=== PATIENT | female | born 1970 | race Caucasian/White ===

== ENCOUNTER 2020-03-08 18:07 | Emergency (ER) | payer MEDICARE, MEDICAID ==
[~2020-03-08] VITALS: Ht 167.6 cm; Wt 82.5 kg
[2020-03-08 18:52] LABS: CLARITY,URINE CLOUDY (Clear); COLOR,URINE YELLOW (Yellow); GLUCOSE, URINE NEGATIVE (Neg); KETONES,URINE NEGATIVE (Neg); LEUKOCYTE ESTERASE ,URINE MODERATE (Neg); OCCULT BLOOD,URINE LARGE (Neg); PH,URINE 6.5 (4.8-8.0); PROTEIN,URINE >=300 mg/dl (Neg)
[2020-03-08] MEDS ORDERED: ondansetron 4mg rapidly disintigrating tab PO ONE ×3 (18:55→20:00)
[2020-03-08] MEDS ORDERED: ketorolac trometh. 30mg/ml inj. IM ONE (18:55)
[2020-03-08 19:05] LABS: UA COLLECTION TYPE CLN CATCH MIDSTREAM
[2020-03-08 19:06] LABS: NITRITES, URINE NEGATIVE (Neg)
[2020-03-08 19:07] LABS: BACTERIA,URINE FEW /HPF (Neg); RBC,URINE TNTC /HPF (0-2); SQUAMOUS EPITHELIAL CELL,UR FEW /LPF (FEW)
[2020-03-08] MEDS ORDERED: cephalexin 250mg capsule PO ONE ×2 (20:00)
[2020-03-08] MEDS ORDERED: ONDA4TAB12 PO (20:02)
[2020-03-08] MEDS ORDERED: CEPH500C5 PO (20:02)
[2020-03-08 20:10] VITALS: BP 138/87
== END 2020-03-08 20:11 | disposition home or self-care (01) ==
LOC: ER 18:07
DX: N39.0 Urinary tract infection, site not specified (principal); J44.9 Chronic obstructive pulmonary disease, unspecified; E05.90 Thyrotoxicosis, unspecified without thyrotoxic crisis or storm; Z88.0 Allergy status to penicillin; Z88.2 Allergy status to sulfonamides
CPT/HCPCS: 81001; 87077; 87088; 87186; 96372; 99284; J1885

== ENCOUNTER 2020-03-21 17:44 | Emergency (ER) | payer BC, MEDICAID ==
[~2020-03-21] VITALS: Ht 165.1 cm; Wt 82.8 kg
[~2020-03-21 17:44] MED LIST: CEPH500C5 PO; ONDA4TAB12 PO
[2020-03-21 19:32] LABS: BASOPHILS # (AUTO) 0.1 X10'3 (0-0.2); EOSINOPHILS # (AUTO) 0.1 X10'3 (0-0.9); EOSINOPHILS % (AUTO) 0.8 % (0-6); HEMATOCRIT 40.8 % (35.0-45.0); HEMOGLOBIN 13.6 g/dl (12.0-16.0); LYMPHOCYTES # (AUTO) 1.5 X10'3 (1.1-4.8); LYMPHOCYTES % (AUTO) 11.5 % (21-51); MEAN CORPUSCULAR HEMOGLOBIN 29.8 PG (27.0-31.0); MEAN CORPUSCULAR HGB CONC 33.3 g/dL (33.0-36.5); MEAN CORPUSCULAR VOLUME 89.6 FL (78-98); MONOCYTES % (AUTO) 7.9 % (2-12); NEUTROPHILS # (AUTO) 10.3 X10'3 (1.8-7.7); NEUTROPHILS % (AUTO) 78.8 % (42-75); PLATELET COUNT 262 X10'3 (140-440); RED BLOOD COUNT 4.56 X10'6 (4.20-5.60); RED CELL DISTRIBUTION WIDTH 13.6 % (11.5-14.5)
[2020-03-21 19:33] LABS: URINE HCG NEGATIVE (NEG)
[2020-03-21 19:34] LABS: CLARITY,URINE CLOUDY (Clear); COLOR,URINE YELLOW (Yellow); GLUCOSE, URINE NEGATIVE (Neg); KETONES,URINE NEGATIVE (Neg); LEUKOCYTE ESTERASE ,URINE MODERATE (Neg); OCCULT BLOOD,URINE MODERATE (Neg); PROTEIN,URINE 100 mg/dl (Neg); UROBILINOGEN,URINE 0.2 E.U/dL (0.2-1.0)
[2020-03-21] MEDS ORDERED: ketorolac trometh inj. 60 MG/2 ML VIAL IM ONE (19:35)
[2020-03-21 19:39] LABS: NITRITES, URINE NEGATIVE (Neg); UA COLLECTION TYPE CLN CATCH MIDSTREAM
[2020-03-21 19:40] LABS: BACTERIA,URINE FEW /HPF (Neg); SQUAMOUS EPITHELIAL CELL,UR FEW /LPF (FEW); WBC,URINE 30-50 /HPF (0-4)
[2020-03-21 19:44] LABS: ALANINE AMINOTRANSFERASE 24 U/L (12-78); ALBUMIN 3.6 G/DL (3.4-5.0); ALBUMIN/GLOBULIN RATIO 0.7 (1.1-1.5); ALKALINE PHOSPHATASE 105 IU/L (46-116); ANION GAP 7 (8-16); ASPARTATE AMINO TRANSFERASE 23 U/L (10-37); BILIRUBIN,TOTAL 0.6 MG/DL (0.1-1.0); BLOOD UREA NITROGEN 13 MG/DL (7-18); BUN/CREATININE RATIO 13.5 (6.6-38.0); CALCIUM 8.8 MG/DL (8.5-10.1); CHLORIDE 101 MMOL/L (99-107); CREATININE 0.96 MG/DL (0.40-0.90); GLUCOSE 101 MG/DL (70-104); LIPASE 98 U/L (73-393); POTASSIUM 3.7 MMOL/L (3.5-5.1); SODIUM 137 MMOL/L (135-145); TOTAL CARBON DIOXIDE 28.8 MMOL/L (24-32); TOTAL PROTEIN 8.8 G/DL (6.4-8.2); eGFR 61 ML/MIN
[2020-03-21] MEDS ORDERED: CefTRIAXone 1000mg IM Kit (w/lidocaine diluent) IM ONE (19:55)
[2020-03-21] MEDS ORDERED: LEVO750T21 PO (20:52)
[2020-03-21 21:01] VITALS: BP 134/82
== END 2020-03-21 21:03 | disposition home or self-care (01) ==
LOC: ER 17:45
DX: N10 Acute pyelonephritis (principal); J44.9 Chronic obstructive pulmonary disease, unspecified; F17.200 Nicotine dependence, unspecified, uncomplicated; F15.90 Other stimulant use, unspecified, uncomplicated; E05.90 Thyrotoxicosis, unspecified without thyrotoxic crisis or storm; Z88.0 Allergy status to penicillin; Z88.2 Allergy status to sulfonamides
CPT/HCPCS: 36415; 74176; 80053; 81001; 81025; 83690; 85025; 87088; 96372; 99284; J0696; J1885

== ENCOUNTER 2020-05-29 13:47 | Emergency (ER) | payer BC, MEDICAID ==
[~2020-05-29] VITALS: Ht 167.6 cm; Wt 82.0 kg
[2020-05-29 14:22] LABS: BASOPHILS # (AUTO) 0.1 X10'3 (0-0.2); BASOPHILS % (AUTO) 0.8 % (0-1); EOSINOPHILS # (AUTO) 0.1 X10'3 (0-0.9); EOSINOPHILS % (AUTO) 0.9 % (0-6); HEMATOCRIT 39.2 % (35.0-45.0); HEMOGLOBIN 13.1 g/dl (12.0-16.0); LYMPHOCYTES # (AUTO) 1.8 X10'3 (1.1-4.8); LYMPHOCYTES % (AUTO) 17.6 % (21-51); MEAN CORPUSCULAR HEMOGLOBIN 29.7 PG (27.0-31.0); MEAN CORPUSCULAR HGB CONC 33.5 g/dL (33.0-36.5); MEAN CORPUSCULAR VOLUME 88.7 FL (78-98); MONOCYTES # (AUTO) 0.8 X10'3 (0-0.9); MONOCYTES % (AUTO) 7.5 % (2-12); NEUTROPHILS # (AUTO) 7.5 X10'3 (1.8-7.7); NEUTROPHILS % (AUTO) 73.2 % (42-75); PLATELET COUNT 279 X10'3 (140-440); RED BLOOD COUNT 4.42 X10'6 (4.20-5.60); WHITE BLOOD COUNT 10.3 X10'3 (4.5-11.0)
[2020-05-29 14:36] LABS: ALANINE AMINOTRANSFERASE 30 U/L (12-78); ALBUMIN 3.7 G/DL (3.4-5.0); ALBUMIN/GLOBULIN RATIO 0.8 (1.1-1.5); ALKALINE PHOSPHATASE 85 IU/L (46-116); ANION GAP 10 (8-16); ASPARTATE AMINO TRANSFERASE 23 U/L (10-37); BILIRUBIN,TOTAL 0.4 MG/DL (0.1-1.0); BLOOD UREA NITROGEN 13 MG/DL (7-18); BUN/CREATININE RATIO 13.3 (6.6-38.0); CALCIUM 9.2 MG/DL (8.5-10.1); CHLORIDE 103 MMOL/L (99-107); CREATININE 0.98 MG/DL (0.40-0.90); GLUCOSE 135 MG/DL (70-104); POTASSIUM 3.7 MMOL/L (3.5-5.1); SODIUM 139 MMOL/L (135-145); TOTAL CARBON DIOXIDE 26.3 MMOL/L (24-32); TOTAL PROTEIN 8.5 G/DL (6.4-8.2); eGFR 60 ML/MIN
[2020-05-29 15:36] VITALS: BP 136/87
== END 2020-05-29 15:37 | disposition home or self-care (01) ==
LOC: ER 13:48
DX: F41.9 Anxiety disorder, unspecified (principal); J44.9 Chronic obstructive pulmonary disease, unspecified; F17.200 Nicotine dependence, unspecified, uncomplicated; Z88.0 Allergy status to penicillin; Z88.2 Allergy status to sulfonamides; Z79.899 Other long term (current) drug therapy
CPT/HCPCS: 36415; 71045; 80053; 83880; 84484; 85025; 93005; 99285

== ENCOUNTER 2020-06-02 00:49 | Emergency (ER) | payer BC, MEDICAID ==
[~2020-06-02] VITALS: Ht 167.6 cm; Wt 68.2 kg
[2020-06-02 00:52] VITALS: BP 13/93
[2020-06-02] MEDS ORDERED: DOXY100C43 PO (01:20)
[2020-06-02] MEDS ORDERED: CEPH500C5 PO (01:20)
[2020-06-02] MEDS ORDERED: cephalexin 250mg capsule PO ONE (01:20)
== END 2020-06-02 01:42 | disposition home or self-care (01) ==
LOC: ER 00:50
DX: L03.116 Cellulitis of left lower limb (principal); J44.9 Chronic obstructive pulmonary disease, unspecified; E05.90 Thyrotoxicosis, unspecified without thyrotoxic crisis or storm; Z88.0 Allergy status to penicillin; Z88.2 Allergy status to sulfonamides; Z79.899 Other long term (current) drug therapy
CPT/HCPCS: 99283

== ENCOUNTER 2020-09-12 13:59 | Emergency (ER) | payer BC, MEDICAID ==
[~2020-09-12] VITALS: Ht 167.6 cm; Wt 65.0 kg
[2020-09-12 14:02] VITALS: BP 170/107
== END 2020-09-12 14:44 | disposition home or self-care (01) ==
LOC: ER 14:00
DX: F15.10 Other stimulant abuse, uncomplicated (principal); F12.10 Cannabis abuse, uncomplicated; F41.9 Anxiety disorder, unspecified; E78.00 Pure hypercholesterolemia, unspecified; J44.9 Chronic obstructive pulmonary disease, unspecified; Z88.0 Allergy status to penicillin; Z88.2 Allergy status to sulfonamides; Z79.2 Long term (current) use of antibiotics; Z79.899 Other long term (current) drug therapy; Z00.01 Encounter for general adult medical examination with abnormal findings
CPT/HCPCS: 99281

== ENCOUNTER 2020-09-18 10:48 | Emergency (ER) | payer BC, MEDICAID ==
[~2020-09-18] VITALS: Ht 167.6 cm; Wt 84.0 kg
[2020-09-18 11:09] VITALS: BP 148/97
== END 2020-09-18 14:20 | disposition left against medical advice (07) ==
LOC: ER 10:48
DX: I10 Essential (primary) hypertension (principal); Z53.21 Procedure and treatment not carried out due to patient leaving prior to being seen by health care provider

== ENCOUNTER 2020-09-23 08:54 | Emergency (ER) | payer BC, MEDICAID ==
[~2020-09-23] VITALS: Ht 167.6 cm; Wt 86.0 kg
[2020-09-23 08:56] VITALS: BP 164/107
[2020-09-23] MEDS ORDERED: LISI-600 PO (09:08)
== END 2020-09-23 09:30 | disposition home or self-care (01) ==
LOC: ER 08:55
DX: I10 Essential (primary) hypertension (principal); J44.9 Chronic obstructive pulmonary disease, unspecified; E05.90 Thyrotoxicosis, unspecified without thyrotoxic crisis or storm; F17.210 Nicotine dependence, cigarettes, uncomplicated; Z88.0 Allergy status to penicillin; Z88.1 Allergy status to other antibiotic agents; Z88.2 Allergy status to sulfonamides; Z79.2 Long term (current) use of antibiotics; Z79.899 Other long term (current) drug therapy
CPT/HCPCS: 99283

== ENCOUNTER 2020-10-13 14:41 | Emergency (ER) | payer BC, MEDICAID ==
[~2020-10-13] VITALS: Ht 167.6 cm; Wt 91.7 kg
[~2020-10-13 14:41] MED LIST changes: +LISI-600 PO
[2020-10-13 16:19] LABS: ALANINE AMINOTRANSFERASE 27 U/L (12-78); ALBUMIN 3.8 G/DL (3.4-5.0); ALBUMIN/GLOBULIN RATIO 0.9 (1.1-1.5); ALKALINE PHOSPHATASE 85 IU/L (46-116); AMYLASE 52 U/L (25-115); ANION GAP 7 (8-16); ASPARTATE AMINO TRANSFERASE 28 U/L (10-37); BILIRUBIN,TOTAL 0.2 MG/DL (0.1-1.0); BLOOD UREA NITROGEN 19 MG/DL (7-18); BUN/CREATININE RATIO 28.8 (6.6-38.0); CALCIUM 8.9 MG/DL (8.5-10.1); CHLORIDE 103 MMOL/L (99-107); CREATININE 0.66 MG/DL (0.40-0.90); GLUCOSE 93 MG/DL (70-104); LIPASE 189 U/L (73-393); POTASSIUM 4.4 MMOL/L (3.5-5.1); SODIUM 138 MMOL/L (135-145); TOTAL CARBON DIOXIDE 27.9 MMOL/L (24-32); TOTAL PROTEIN 8.2 G/DL (6.4-8.2); eGFR > 90 ML/MIN
[2020-10-13 17:04] LABS: BASOPHILS # (AUTO) 0.1 X10'3 (0-0.2); BASOPHILS % (AUTO) 1.2 % (0-1); EOSINOPHILS # (AUTO) 0.3 X10'3 (0-0.9); EOSINOPHILS % (AUTO) 3.7 % (0-6); HEMATOCRIT 40.9 % (35.0-45.0); HEMOGLOBIN 13.5 g/dl (12.0-16.0); LYMPHOCYTES # (AUTO) 2.5 X10'3 (1.1-4.8); LYMPHOCYTES % (AUTO) 33.7 % (21-51); MEAN CORPUSCULAR HEMOGLOBIN 30.2 PG (27.0-31.0); MEAN CORPUSCULAR HGB CONC 33.1 g/dL (33.0-36.5); MEAN CORPUSCULAR VOLUME 91.1 FL (78-98); MEAN PLATELET VOLUME 7.7 FL (7.4-10.4); MONOCYTES # (AUTO) 0.6 X10'3 (0-0.9); MONOCYTES % (AUTO) 8.3 % (2-12); NEUTROPHILS % (AUTO) 53.1 % (42-75); PLATELET COUNT 253 X10'3 (140-440); RED BLOOD COUNT 4.48 X10'6 (4.20-5.60); RED CELL DISTRIBUTION WIDTH 14.5 % (11.5-14.5); WHITE BLOOD COUNT 7.5 X10'3 (4.5-11.0)
--- NOTE | 2020-10-13 17:13 | NUR ---
PT AMB TO BATHROOM TO VOID FOR URINE SPECIMEN COLLECTION.
[2020-10-13 17:24] VITALS: BP 145/106
[2020-10-13 17:27] LABS: CLARITY,URINE CLEAR (Clear); COLOR,URINE STRAW (Yellow); GLUCOSE, URINE NEGATIVE (Neg); KETONES,URINE NEGATIVE (Neg); LEUKOCYTE ESTERASE ,URINE NEGATIVE (Neg); NITRITES, URINE NEGATIVE (Neg); OCCULT BLOOD,URINE TRACE-INTACT (Neg); PROTEIN,URINE NEGATIVE (Neg); UROBILINOGEN,URINE 0.2 E.U/dL (0.2-1.0)
[2020-10-13 17:28] LABS: UA COLLECTION TYPE CLN CATCH MIDSTREAM
--- NOTE | 2020-10-13 17:29 | NUR ---
PROVIDER IN TO EVAL PT.
[2020-10-13 17:30] LABS: URINE HCG NEGATIVE (NEG)
[2020-10-13 17:35] LABS: MUCUS STRANDS NONE SEEN /LPF (Neg); SQUAMOUS EPITHELIAL CELL,UR FEW /LPF (FEW); TRANSITIONAL EPI CELLS,URINE FEW /HPF
[2020-10-13 17:36] LABS: BACTERIA,URINE NONE SEEN /HPF (Neg); RBC,URINE 0-2 /HPF (0-2); WBC,URINE 0-4 /HPF (0-4)
== END 2020-10-13 18:40 | disposition home or self-care (01) ==
LOC: ER 14:42
DX: R10.11 Right upper quadrant pain (principal); I10 Essential (primary) hypertension; J44.9 Chronic obstructive pulmonary disease, unspecified; E07.9 Disorder of thyroid, unspecified; F17.200 Nicotine dependence, unspecified, uncomplicated; Z98.891 History of uterine scar from previous surgery; Z88.0 Allergy status to penicillin; Z88.1 Allergy status to other antibiotic agents; Z88.2 Allergy status to sulfonamides; Z79.2 Long term (current) use of antibiotics; Z79.899 Other long term (current) drug therapy
CPT/HCPCS: 36415; 76700; 80053; 81001; 81025; 82150; 83690; 85025; 99284

== ENCOUNTER 2020-10-31 17:46 | Emergency (ER) | payer BC, MEDICAID ==
[~2020-10-31] VITALS: Ht 167.6 cm; Wt 93.2 kg
[~2020-10-31 17:46] MED LIST changes: -LISI-600 PO
[2020-10-31 18:26] LABS: CLARITY,URINE CLEAR (Clear); COLOR,URINE YELLOW (Yellow); GLUCOSE, URINE NEGATIVE (Neg); KETONES,URINE NEGATIVE (Neg); LEUKOCYTE ESTERASE ,URINE NEGATIVE (Neg); NITRITES, URINE NEGATIVE (Neg); OCCULT BLOOD,URINE NEGATIVE (Neg); PROTEIN,URINE NEGATIVE (Neg); UROBILINOGEN,URINE 0.2 E.U/dL (0.2-1.0)
[2020-10-31 18:28] LABS: UA COLLECTION TYPE CLN CATCH MIDSTREAM
[2020-10-31 18:42] LABS: BASOPHILS # (AUTO) 0.1 X10'3 (0-0.2); BASOPHILS % (AUTO) 0.8 % (0-1); EOSINOPHILS # (AUTO) 0.3 X10'3 (0-0.9); EOSINOPHILS % (AUTO) 3.4 % (0-6); HEMATOCRIT 40.1 % (35.0-45.0); HEMOGLOBIN 13.6 g/dl (12.0-16.0); LYMPHOCYTES % (AUTO) 26.2 % (21-51); MEAN CORPUSCULAR HEMOGLOBIN 30.9 PG (27.0-31.0); MEAN CORPUSCULAR HGB CONC 33.9 g/dL (33.0-36.5); MEAN CORPUSCULAR VOLUME 91.2 FL (78-98); MONOCYTES # (AUTO) 0.7 X10'3 (0-0.9); MONOCYTES % (AUTO) 8.5 % (2-12); NEUTROPHILS # (AUTO) 4.7 X10'3 (1.8-7.7); NEUTROPHILS % (AUTO) 61.1 % (42-75); PLATELET COUNT 244 X10'3 (140-440); RED BLOOD COUNT 4.39 X10'6 (4.20-5.60); RED CELL DISTRIBUTION WIDTH 14.8 % (11.5-14.5); WHITE BLOOD COUNT 7.7 X10'3 (4.5-11.0)
[2020-10-31] MEDS ORDERED: ketorolac trometh inj. 60 MG/2 ML VIAL IM ONE (18:45)
[2020-10-31] MEDS ORDERED: ondansetron 4mg rapidly disintigrating tab PO ONE (18:45)
--- NOTE | 2020-10-31 18:45 | NUR ---
2ND CALL AT 184. ETA 20 MINS Addendum: 10/31/20 at 1844 by GILMAR 2ND CALL TO U/S AT 184. ETA 20 MINS
[2020-10-31 18:52] LABS: ALANINE AMINOTRANSFERASE 29 U/L (12-78); ALBUMIN 3.8 G/DL (3.4-5.0); ALBUMIN/GLOBULIN RATIO 0.8 (1.1-1.5); ALKALINE PHOSPHATASE 89 IU/L (46-116); ANION GAP 9 (8-16); ASPARTATE AMINO TRANSFERASE 29 U/L (10-37); BILIRUBIN,TOTAL 0.2 MG/DL (0.1-1.0); BLOOD UREA NITROGEN 18 MG/DL (7-18); BUN/CREATININE RATIO 23.1 (6.6-38.0); CALCIUM 8.8 MG/DL (8.5-10.1); CHLORIDE 104 MMOL/L (99-107); CREATININE 0.78 MG/DL (0.40-0.90); GLUCOSE 88 MG/DL (70-104); POTASSIUM 4.5 MMOL/L (3.5-5.1); SODIUM 142 MMOL/L (135-145); TOTAL CARBON DIOXIDE 29.2 MMOL/L (24-32); TOTAL PROTEIN 8.4 G/DL (6.4-8.2); eGFR 78 ML/MIN
[2020-10-31 18:55] LABS: AMYLASE 58 U/L (25-115); LIPASE 225 U/L (73-393); TROPONIN I < 0.04 NG/ML (0.0-0.05)
[2020-10-31 19:53] VITALS: BP 123/84
[2020-10-31] MEDS ORDERED: ONDA4TAB6 PO (20:25)
== END 2020-10-31 20:36 | disposition home or self-care (01) ==
LOC: ER 17:49
DX: R10.11 Right upper quadrant pain (principal); I10 Essential (primary) hypertension; J44.9 Chronic obstructive pulmonary disease, unspecified; E05.90 Thyrotoxicosis, unspecified without thyrotoxic crisis or storm; Z87.440 Personal history of urinary (tract) infections; Z98.890 Other specified postprocedural states; Z88.1 Allergy status to other antibiotic agents; Z88.0 Allergy status to penicillin; Z88.2 Allergy status to sulfonamides; Z79.2 Long term (current) use of antibiotics
CPT/HCPCS: 36415; 80053; 81003; 82150; 83690; 84484; 85025; 96372; 99283; J1885

== ENCOUNTER 2021-01-03 13:30 | Emergency (ER) | payer MEDICAID ==
[~2021-01-03] VITALS: Ht 162.6 cm; Wt 82.4 kg
[~2021-01-03 13:30] MED LIST changes: +CEPH-585 PO; -CEPH500C5 PO; +ONDA4TAB6 PO
[2021-01-03] MEDS ORDERED: NITR100C6 PO (14:17)
[2021-01-03] MEDS ORDERED: PHEN-786 PO (14:19)
[2021-01-03 14:24] LABS: CLARITY,URINE CLOUDY (Clear); COLOR,URINE YELLOW (Yellow); GLUCOSE, URINE NEGATIVE (Neg); KETONES,URINE NEGATIVE (Neg); LEUKOCYTE ESTERASE ,URINE MODERATE (Neg); NITRITES, URINE NEGATIVE (Neg); OCCULT BLOOD,URINE LARGE (Neg); PROTEIN,URINE 100 mg/dl (Neg)
[2021-01-03 14:29] LABS: UA COLLECTION TYPE CLN CATCH MIDSTREAM
[2021-01-03 14:30] LABS: BACTERIA,URINE FEW /HPF (Neg); MUCUS STRANDS FEW /LPF (Neg); RBC,URINE TNTC /HPF (0-2); SQUAMOUS EPITHELIAL CELL,UR MODERATE /LPF (FEW); WBC,URINE TNTC /HPF (0-4)
[2021-01-03 14:40] VITALS: BP 148/92
== END 2021-01-03 14:49 | disposition home or self-care (01) ==
LOC: ER 13:31
DX: N39.0 Urinary tract infection, site not specified (principal); R31.9 Hematuria, unspecified; J44.9 Chronic obstructive pulmonary disease, unspecified; I10 Essential (primary) hypertension; E05.90 Thyrotoxicosis, unspecified without thyrotoxic crisis or storm; Z98.890 Other specified postprocedural states; Z88.1 Allergy status to other antibiotic agents; Z88.0 Allergy status to penicillin; Z79.899 Other long term (current) drug therapy
CPT/HCPCS: 81001; 87077; 87088; 87186; 99283

== ENCOUNTER 2021-05-01 21:12 | Emergency (ER) | payer MEDICAID ==
[~2021-05-01] VITALS: Ht 167.6 cm; Wt 75.0 kg
[~2021-05-01 21:12] MED LIST changes: +NITR100C6 PO; +PHEN-786 PO
[2021-05-01 21:15] VITALS: BP 159/100
[2021-05-01] MEDS ORDERED: [UNRECOGNIZED DRUG - CODE] PO (22:48)
== END 2021-05-01 23:34 | disposition home or self-care (01) ==
LOC: ER 21:13
DX: L02.01 Cutaneous abscess of face (principal); I10 Essential (primary) hypertension; J44.9 Chronic obstructive pulmonary disease, unspecified; E05.90 Thyrotoxicosis, unspecified without thyrotoxic crisis or storm; Z98.890 Other specified postprocedural states; Z88.1 Allergy status to other antibiotic agents; Z88.0 Allergy status to penicillin; Z88.2 Allergy status to sulfonamides; Z79.899 Other long term (current) drug therapy
CPT/HCPCS: 99283

== ENCOUNTER 2021-05-03 17:58 | Emergency (ER) | payer MEDICAID ==
[~2021-05-03] VITALS: Ht 167.6 cm; Wt 82.0 kg
[~2021-05-03 17:58] MED LIST changes: +[UNRECOGNIZED DRUG - CODE] PO
[2021-05-03 18:08] VITALS: BP 128/101
== END 2021-05-03 20:12 | disposition home or self-care (01) ==
LOC: ER 17:59
DX: L70.9 Acne, unspecified (principal); L02.01 Cutaneous abscess of face; I10 Essential (primary) hypertension; J44.9 Chronic obstructive pulmonary disease, unspecified; E03.9 Hypothyroidism, unspecified; Z87.440 Personal history of urinary (tract) infections; Z98.890 Other specified postprocedural states; Z88.1 Allergy status to other antibiotic agents; Z88.0 Allergy status to penicillin; Z88.2 Allergy status to sulfonamides; Z79.2 Long term (current) use of antibiotics; Z79.899 Other long term (current) drug therapy
CPT/HCPCS: 99282

== ENCOUNTER 2021-05-25 01:24 | Emergency (ER) | payer MEDICAID ==
[~2021-05-25] VITALS: Ht 167.6 cm; Wt 75.0 kg
[~2021-05-25 01:24] MED LIST changes: -[UNRECOGNIZED DRUG - CODE] PO
[2021-05-25 01:35] VITALS: BP 150/97
== END 2021-05-25 02:15 | disposition left against medical advice (07) ==
LOC: ER 01:24
DX: R51.9 Headache, unspecified (principal); Z53.21 Procedure and treatment not carried out due to patient leaving prior to being seen by health care provider

== ENCOUNTER 2022-04-10 14:07 | Inpatient (IN) | payer MEDICARE, MEDICAID ==
[~2022-04-10] VITALS: Ht 167.6 cm; Wt 85.9 kg
[~2022-04-10 14:07] MED LIST changes: -CEPH-585 PO
[2022-04-10] MEDS ORDERED: vancomycin/NS 1 GM ADD-VANTAGE 250 ML IV ONE (16:25)
[2022-04-10] MEDS ORDERED: normal saline 1000ML IV soln IV ONE (16:25)
[2022-04-10 16:49] LABS: BASOPHILS % (AUTO) 0.3 % (0-1); EOSINOPHILS % (AUTO) 0.1 % (0-6); HEMATOCRIT 36.7 % (35.0-45.0); HEMOGLOBIN 12.4 g/dl (12.0-16.0); LYMPHOCYTES # (AUTO) 1.4 X10'3 (1.1-4.8); LYMPHOCYTES % (AUTO) 9.1 % (21-51); MEAN CORPUSCULAR HEMOGLOBIN 29.4 PG (27.0-31.0); MEAN CORPUSCULAR HGB CONC 33.9 g/dL (33.0-36.5); MEAN CORPUSCULAR VOLUME 86.7 FL (78-98); MONOCYTES # (AUTO) 0.8 X10'3 (0-0.9); MONOCYTES % (AUTO) 5.2 % (2-12); NEUTROPHILS # (AUTO) 12.8 X10'3 (1.8-7.7); NEUTROPHILS % (AUTO) 85.3 % (42-75); PLATELET COUNT 220 X10'3 (140-440); RED BLOOD COUNT 4.23 X10'6 (4.20-5.60); RED CELL DISTRIBUTION WIDTH 14.7 % (11.5-14.5)
[2022-04-10] MEDS ORDERED: ketorolac tromethamine 15mg/ml inj. IV ONE (16:50)
[2022-04-10] MEDS ORDERED: ondansetron 4mg rapidly disintigrating tab PO ONE (16:50)
[2022-04-10 16:58] LABS: ALANINE AMINOTRANSFERASE 18 U/L (12-78); ALBUMIN 3.1 G/DL (3.4-5.0); ALBUMIN/GLOBULIN RATIO 0.5 (1.1-1.5); ALKALINE PHOSPHATASE 73 IU/L (46-116); ANION GAP 10 (8-16); ASPARTATE AMINO TRANSFERASE 22 U/L (10-37); BILIRUBIN,TOTAL 0.4 MG/DL (0.1-1.0); BLOOD UREA NITROGEN 23 MG/DL (7-18); BUN/CREATININE RATIO 17.4 (6.6-38.0); CALCIUM 8.8 MG/DL (8.5-10.1); CHLORIDE 100 MMOL/L (99-107); CREATININE 1.32 MG/DL (0.40-0.90); GLUCOSE 100 MG/DL (70-104); MAGNESIUM 2.5 MG/DL (1.5-2.4); POTASSIUM 3.7 MMOL/L (3.5-5.1); SODIUM 136 MMOL/L (135-145); TOTAL CARBON DIOXIDE 26.2 MMOL/L (24-32); TOTAL PROTEIN 8.8 G/DL (6.4-8.2); eGFR 42 ML/MIN
[2022-04-10 17:24] LABS: C-REACTIVE PROTEIN 26.37 MG/DL (0.0-0.5)
[2022-04-10 17:34] LABS: URINE HCG NEGATIVE (NEG)
--- NOTE | 2022-04-10 17:36 | NUR ---
unable to start another line,radio/tv technician at bedside.
[2022-04-10] MEDS ORDERED: POTASSIUM BICARB 20meq eff tab 20 MEQ TABLET.EFF PO PRN ×2 (17:40)
[2022-04-10] MEDS ORDERED: magnesium Cl slow-release 64mg tablet PO PRN (17:40)
[2022-04-10] MEDS ORDERED: bisacodyl 10mg suppository rectal RC PRN (17:40)
[2022-04-10] MEDS ORDERED: potassium CL 10mEq/100ml bag 100 ML IV PRN (17:40)
[2022-04-10] MEDS ORDERED: ondansetron/PF 4mg/2ml inj IV PRN (17:40)
[2022-04-10] MEDS ORDERED: morphine 2 MG/ML inj. syringe IV PRN (17:40)
[2022-04-10] MEDS ORDERED: acetaminophen 325mg tablet PO PRN ×2 (17:40)
[2022-04-10] MEDS ORDERED: magnesium 4gm in 100ml NS 100 ML IV PRN (17:40)
[2022-04-10] MEDS ORDERED: magnesium 2GM in 50ml NS 50 ML IV PRN (17:40)
[2022-04-10] MEDS ORDERED: HYDROcodone/acetaminophen 5mg/325mg tablet PO PRN (17:40)
[2022-04-10 17:41] LABS: CLARITY,URINE SLIGHTLY CLOUDY (Clear); COLOR,URINE YELLOW (Yellow); GLUCOSE, URINE NEGATIVE (Neg); KETONES,URINE TRACE mg/dl (Neg); LEUKOCYTE ESTERASE ,URINE MODERATE (Neg); NITRITES, URINE NEGATIVE (Neg); OCCULT BLOOD,URINE SMALL (Neg); PROTEIN,URINE 30 mg/dl (Neg); UROBILINOGEN,URINE 0.2 E.U/dL (0.2-1.0)
[2022-04-10] MEDS ORDERED: diphenhydrAMINE 25mg capsule PO PRN (17:45)
[2022-04-10] MEDS ORDERED: diphenhydrAMINE 50 mg/ml inj IV PRN (17:45)
[2022-04-10 17:46] LABS: UA COLLECTION TYPE CLN CATCH MIDSTREAM
[2022-04-10 17:47] LABS: URINE AMPHETAMINE SCREEN NEGATIVE (Neg); URINE BARBITUATE SCREEN NEGATIVE (Neg); URINE BENZODIAZEPINES SCREEN NEGATIVE (Neg); URINE CANNABINOID SCREEN POSITIVE (Neg); URINE COCAINE SCREEN NEGATIVE (Neg); URINE METHADONE SCREEN NEGATIVE (Neg); URINE OPIATE SCREEN NEGATIVE (Neg); URINE PHENCYCLIDINE SCREEN NEGATIVE (Neg)
[2022-04-10 17:48] LABS: BACTERIA,URINE 1+ /HPF (Neg); MUCUS STRANDS FEW /LPF (Neg); RBC,URINE 0-2 /HPF (0-2); SQUAMOUS EPITHELIAL CELL,UR MANY /LPF (FEW); WBC,URINE 20-30 /HPF (0-4)
[2022-04-10] MEDS ORDERED: VANCOMYCIN 1,500MG inj. 1,500 MG in normal saline 500ml IV soln 300 ML IV ONE (19:00)
[2022-04-10] MEDS: HYDROcodone/acetaminophen 10/325mg tab PO PRN ×2 (19:07→22:17)
[2022-04-10] MEDS: K and/or MAG REPLACEMENT MC SCH (20:00)
[2022-04-10] MEDS: heparin, porcine 5000 units/ml vial SQ SCH (20:04)
[2022-04-10] MEDS: morphine 2 MG/ML inj. syringe IV PRN (20:05)
[2022-04-10] MEDS ORDERED: temazepam 15mg capsule PO PRN (21:00)
[2022-04-10 21:07] VITALS: BP 119/69
[2022-04-10] MEDS ORDERED: LISI20TA28 PO (21:28)
[2022-04-10 22:00] VITALS: BP 124/74
[2022-04-10] MEDS: normal saline 1000ml 1,000 ML IV SCH (22:18)
--- NOTE | 2022-04-10 22:50 | NUR ---
Report received from Teofilo AGUIRRE from Ed. Patient came up to floor via gurney. Patient able to transfer into bed. bed placed in locked & low, position, call light within reach.
[2022-04-11] MEDS: morphine 2 MG/ML inj. syringe IV PRN ×2 (01:31→05:28)
[2022-04-11] MEDS: HYDROcodone/acetaminophen 10/325mg tab PO PRN ×4 (03:03→22:35)
[2022-04-11] MEDS: normal saline 1000ml 1,000 ML IV SCH ×2 (03:40→07:46)
[2022-04-11 04:42] LABS: CLARITY,URINE CLEAR (Clear); COLOR,URINE YELLOW (Yellow); GLUCOSE, URINE NEGATIVE (Neg); KETONES,URINE NEGATIVE (Neg); LEUKOCYTE ESTERASE ,URINE TRACE (Neg); NITRITES, URINE NEGATIVE (Neg); OCCULT BLOOD,URINE MODERATE (Neg); PROTEIN,URINE TRACE mg/dl (Neg); UROBILINOGEN,URINE 0.2 E.U/dL (0.2-1.0)
[2022-04-11 04:48] LABS: UA COLLECTION TYPE CLN CATCH MIDSTREAM
[2022-04-11 04:50] LABS: BACTERIA,URINE FEW /HPF (Neg); RBC,URINE 0-2 /HPF (0-2); SQUAMOUS EPITHELIAL CELL,UR FEW /LPF (FEW)
[2022-04-11 05:00] VITALS: BP 104/69
[2022-04-11 06:03] LABS: BASOPHILS % (AUTO) 0.4 % (0-1); EOSINOPHILS # (AUTO) 0.1 X10'3 (0-0.9); EOSINOPHILS % (AUTO) 0.7 % (0-6); HEMATOCRIT 32.2 % (35.0-45.0); HEMOGLOBIN 10.7 g/dl (12.0-16.0); LYMPHOCYTES # (AUTO) 1.5 X10'3 (1.1-4.8); LYMPHOCYTES % (AUTO) 14.5 % (21-51); MEAN CORPUSCULAR HEMOGLOBIN 29.1 PG (27.0-31.0); MEAN CORPUSCULAR HGB CONC 33.3 g/dL (33.0-36.5); MEAN CORPUSCULAR VOLUME 87.4 FL (78-98); MEAN PLATELET VOLUME 8.7 FL (7.4-10.4); MONOCYTES # (AUTO) 0.8 X10'3 (0-0.9); MONOCYTES % (AUTO) 8.2 % (2-12); NEUTROPHILS # (AUTO) 7.8 X10'3 (1.8-7.7); NEUTROPHILS % (AUTO) 76.2 % (42-75); PLATELET COUNT 201 X10'3 (140-440); RED BLOOD COUNT 3.69 X10'6 (4.20-5.60); RED CELL DISTRIBUTION WIDTH 14.7 % (11.5-14.5); WHITE BLOOD COUNT 10.2 X10'3 (4.5-11.0)
--- NOTE | 2022-04-11 06:11 | NUR ---
Report given to Harriet AGUIRRE
[2022-04-11 06:25] LABS: ALANINE AMINOTRANSFERASE 19 U/L (12-78); ALBUMIN 2.5 G/DL (3.4-5.0); ALBUMIN/GLOBULIN RATIO 0.5 (1.1-1.5); ALKALINE PHOSPHATASE 60 IU/L (46-116); ANION GAP 5 (8-16); ASPARTATE AMINO TRANSFERASE 25 U/L (10-37); BILIRUBIN,TOTAL 0.3 MG/DL (0.1-1.0); BLOOD UREA NITROGEN 16 MG/DL (7-18); BUN/CREATININE RATIO 19.3 (6.6-38.0); CALCIUM 7.9 MG/DL (8.5-10.1); CHLORIDE 105 MMOL/L (99-107); CREATININE 0.83 MG/DL (0.40-0.90); GLUCOSE 119 MG/DL (70-104); POTASSIUM 3.9 MMOL/L (3.5-5.1); SODIUM 136 MMOL/L (135-145); TOTAL CARBON DIOXIDE 26.2 MMOL/L (24-32); TOTAL PROTEIN 7.4 G/DL (6.4-8.2); eGFR 72 ML/MIN
[2022-04-11] MEDS: K and/or MAG REPLACEMENT MC SCH ×2 (07:29→20:00)
[2022-04-11] MEDS: heparin, porcine 5000 units/ml vial SQ SCH ×2 (07:41→19:28)
[2022-04-11] MEDS: vancomycin/NS 1 GM ADD-VANTAGE 250 ML IV SCH ×2 (07:41→19:27)
[2022-04-11] MEDS ORDERED: HYDR-3686 PO (08:56)
[2022-04-11 10:00] VITALS: BP 108/68
[2022-04-11] MEDS: nicotine 14mg patch - 24hr TD SCH (11:27)
[2022-04-11] MEDS: ceFAZolin/D5W- 1GM premix 50 ML IV SCH ×2 (16:30→23:33)
[2022-04-11 18:00] VITALS: BP 147/95
--- NOTE | 2022-04-11 18:50 | NUR ---
Report given to Shayla AGUIRRE, patient doing well at this time. Resting comfortably in bed
--- NOTE | 2022-04-11 18:52 | NUR ---
Patient in room [facility] 4015. I have received report from KEVIN AGUIRRE and had the opportunity to ask questions and assume patient care.
[2022-04-11 22:00] VITALS: BP 140/84
[2022-04-12] MEDS: normal saline 1000ml 1,000 ML IV SCH ×3 (01:19→19:40)
[2022-04-12 06:00] VITALS: BP 146/100
[2022-04-12] MEDS ORDERED: VANCOMYCIN LEVEL IV ONE (06:30)
--- NOTE | 2022-04-12 06:30 | NUR ---
Patient in room [facility] 4015. I have received report from Shayla AGUIRRE and had the opportunity to ask questions and assume patient care.
--- NOTE | 2022-04-12 06:30 | NUR ---
Problems reprioritized. Patient report given, questions answered & plan of care reviewed with SANDRA AGUIRRE.
[2022-04-12] MEDS: HYDROcodone/acetaminophen 10/325mg tab PO PRN ×3 (06:52→19:12)
[2022-04-12 06:59] LABS: BASOPHILS % (AUTO) 0.4 % (0-1); EOSINOPHILS # (AUTO) 0.1 X10'3 (0-0.9); EOSINOPHILS % (AUTO) 1.5 % (0-6); HEMATOCRIT 30.2 % (35.0-45.0); HEMOGLOBIN 10.1 g/dl (12.0-16.0); LYMPHOCYTES # (AUTO) 1.3 X10'3 (1.1-4.8); LYMPHOCYTES % (AUTO) 16.6 % (21-51); MEAN CORPUSCULAR HEMOGLOBIN 29.6 PG (27.0-31.0); MEAN CORPUSCULAR HGB CONC 33.5 g/dL (33.0-36.5); MEAN CORPUSCULAR VOLUME 88.2 FL (78-98); MEAN PLATELET VOLUME 7.8 FL (7.4-10.4); MONOCYTES # (AUTO) 0.7 X10'3 (0-0.9); MONOCYTES % (AUTO) 9.6 % (2-12); NEUTROPHILS # (AUTO) 5.5 X10'3 (1.8-7.7); NEUTROPHILS % (AUTO) 71.9 % (42-75); PLATELET COUNT 220 X10'3 (140-440); RED BLOOD COUNT 3.42 X10'6 (4.20-5.60); RED CELL DISTRIBUTION WIDTH 14.6 % (11.5-14.5); WHITE BLOOD COUNT 7.7 X10'3 (4.5-11.0)
[2022-04-12 07:08] LABS: ALANINE AMINOTRANSFERASE 25 U/L (12-78); ALBUMIN 2.4 G/DL (3.4-5.0); ALBUMIN/GLOBULIN RATIO 0.5 (1.1-1.5); ALKALINE PHOSPHATASE 73 IU/L (46-116); ANION GAP 3 (8-16); ASPARTATE AMINO TRANSFERASE 28 U/L (10-37); BILIRUBIN,TOTAL 0.2 MG/DL (0.1-1.0); BLOOD UREA NITROGEN 10 MG/DL (7-18); BUN/CREATININE RATIO 15.4 (6.6-38.0); CALCIUM 8.2 MG/DL (8.5-10.1); CHLORIDE 105 MMOL/L (99-107); CREATININE 0.65 MG/DL (0.40-0.90); GLUCOSE 121 MG/DL (70-104); POTASSIUM 4.2 MMOL/L (3.5-5.1); SODIUM 136 MMOL/L (135-145); TOTAL CARBON DIOXIDE 27.6 MMOL/L (24-32); TOTAL PROTEIN 7.1 G/DL (6.4-8.2); VANCOMYCIN,TROUGH 9.5 UG/ML (6.0-14.0); eGFR > 90 ML/MIN
[2022-04-12] MEDS: ceFAZolin/D5W- 1GM premix 50 ML IV SCH ×2 (07:39→16:00)
[2022-04-12] MEDS: heparin, porcine 5000 units/ml vial SQ SCH ×2 (07:40→19:50)
[2022-04-12] MEDS: nicotine 14mg patch - 24hr TD SCH (07:40)
[2022-04-12] MEDS: K and/or MAG REPLACEMENT MC SCH ×2 (08:00→19:43)
[2022-04-12] MEDS: VANCOmycin 1250MG/NS 250ml Bag 250 ML IV SCH ×2 (09:46→19:50)
[2022-04-12] MEDS ORDERED: furosemide 40mg/4ml inj IV ONE (09:50)
[2022-04-12 10:00] VITALS: BP_SYST 134; BP_SYST 136; BP_DIAS 76; BP_DIAS 86
--- NOTE | 2022-04-12 18:30 | NUR ---
Problems reprioritized. Patient report given, questions answered & plan of care reviewed with Yanci AGUIRRE.
[2022-04-12 22:00] VITALS: BP 172/95
[2022-04-13] MEDS: ceFAZolin/D5W- 1GM premix 50 ML IV SCH ×2 (00:46→07:24)
[2022-04-13 03:21] VITALS: BP 162/96
[2022-04-13] MEDS: normal saline 1000ml 1,000 ML IV SCH (03:36)
[2022-04-13] MEDS: lisinopril 20mg tablet PO SCH ×2 (03:36→07:25)
[2022-04-13 06:10] VITALS: BP 138/90
[2022-04-13 06:50] LABS: BASOPHILS % (AUTO) 0.5 % (0-1); EOSINOPHILS # (AUTO) 0.1 X10'3 (0-0.9); EOSINOPHILS % (AUTO) 1.6 % (0-6); HEMATOCRIT 33.7 % (35.0-45.0); LYMPHOCYTES # (AUTO) 1.3 X10'3 (1.1-4.8); LYMPHOCYTES % (AUTO) 14.2 % (21-51); MEAN CORPUSCULAR HEMOGLOBIN 28.8 PG (27.0-31.0); MEAN CORPUSCULAR HGB CONC 32.7 g/dL (33.0-36.5); MEAN CORPUSCULAR VOLUME 87.9 FL (78-98); MEAN PLATELET VOLUME 7.9 FL (7.4-10.4); MONOCYTES # (AUTO) 0.9 X10'3 (0-0.9); MONOCYTES % (AUTO) 9.7 % (2-12); NEUTROPHILS # (AUTO) 6.6 X10'3 (1.8-7.7); PLATELET COUNT 240 X10'3 (140-440); RED BLOOD COUNT 3.83 X10'6 (4.20-5.60); RED CELL DISTRIBUTION WIDTH 14.9 % (11.5-14.5)
[2022-04-13] MEDS: HYDROcodone/acetaminophen 10/325mg tab PO PRN ×2 (07:24→11:02)
[2022-04-13] MEDS: heparin, porcine 5000 units/ml vial SQ SCH (07:25)
[2022-04-13] MEDS: nicotine 14mg patch - 24hr TD SCH (07:25)
[2022-04-13 07:30] LABS: ALANINE AMINOTRANSFERASE 26 U/L (12-78); ALBUMIN 2.6 G/DL (3.4-5.0); ALBUMIN/GLOBULIN RATIO 0.5 (1.1-1.5); ALKALINE PHOSPHATASE 70 IU/L (46-116); ANION GAP 5 (8-16); ASPARTATE AMINO TRANSFERASE 25 U/L (10-37); BILIRUBIN,TOTAL 0.3 MG/DL (0.1-1.0); BLOOD UREA NITROGEN 8 MG/DL (7-18); BUN/CREATININE RATIO 12.1 (6.6-38.0); CALCIUM 8.7 MG/DL (8.5-10.1); CHLORIDE 105 MMOL/L (99-107); CREATININE 0.66 MG/DL (0.40-0.90); GLUCOSE 102 MG/DL (70-104); POTASSIUM 4.3 MMOL/L (3.5-5.1); SODIUM 141 MMOL/L (135-145); TOTAL CARBON DIOXIDE 31.1 MMOL/L (24-32); TOTAL PROTEIN 7.6 G/DL (6.4-8.2); eGFR > 90 ML/MIN
[2022-04-13] MEDS: K and/or MAG REPLACEMENT MC SCH (08:00)
[2022-04-13] MEDS: VANCOmycin 1250MG/NS 250ml Bag 250 ML IV SCH (08:00)
[2022-04-13] MEDS ORDERED: CEPH-585 PO (09:49)
[2022-04-13] MEDS ORDERED: DOXY100C2 PO (09:49)
[2022-04-13 10:00] VITALS: BP 137/85
--- NOTE | 2022-04-13 13:00 | NUR ---
Patient discharged at this time. Medications e-scripted to her pharmacy. Patient left with boyfriend
[2022-04-13] MEDS ORDERED: VANCOMYCIN LEVEL IV ONE (19:30)
== END 2022-04-13 13:00 | disposition hospice, home (50) | DRG 602 ==
LOC: ER 14:08 → ED HOLD 17:44 → EDBEDREQ 20:07 → ORTHO 4S 20:57
PROVIDERS: ADMIT Internal Medicine; ATTEND Family Medicine
DX: L03.116 Cellulitis of left lower limb (principal); N17.0 Acute kidney failure with tubular necrosis; I12.9 Hypertensive chronic kidney disease with stage 1 through stage 4 chronic kidney disease, or unspecified chronic kidney disease; N18.30 Chronic kidney disease, stage 3 unspecified; E66.9 Obesity, unspecified; E05.90 Thyrotoxicosis, unspecified without thyrotoxic crisis or storm; F17.210 Nicotine dependence, cigarettes, uncomplicated; J44.9 Chronic obstructive pulmonary disease, unspecified; Z59.00 Homelessness unspecified; Z98.891 History of uterine scar from previous surgery; Z88.1 Allergy status to other antibiotic agents; Z88.2 Allergy status to sulfonamides; Z88.0 Allergy status to penicillin; Z88.8 Allergy status to other drugs, medicaments and biological substances; Z87.440 Personal history of urinary (tract) infections; Z68.30 Body mass index [BMI] 30.0-30.9, adult; Z71.6 Tobacco abuse counseling
CPT/HCPCS: 36415; 71045; 80053; 80202; 80305; 81001; 81025; 83605; 83735; 84145; 85025; 86140; 87040; 87081; 87088; 93971; 96374; 96375; 99285; G0378; J0690; J1644; J1885; J1940; J2270; J3370; J7030; J7040

== ENCOUNTER 2023-11-08 12:31 | Emergency (ER) | payer OTHER, MEDICAID ==
[~2023-11-08] VITALS: Ht 162.6 cm; Wt 96.2 kg
[~2023-11-08 12:31] MED LIST changes: +HYDR-3686 PO; +LISI20TA28 PO; -NITR100C6 PO; -ONDA4TAB12 PO; -ONDA4TAB6 PO; -PHEN-786 PO
[2023-11-08 13:12] LABS: ALANINE AMINOTRANSFERASE 38 U/L (12-78); ALBUMIN 3.4 G/DL (3.4-5.0); ALBUMIN/GLOBULIN RATIO 0.7 (1.1-1.5); ALKALINE PHOSPHATASE 95 IU/L (46-116); ANION GAP 6 (8-16); ASPARTATE AMINO TRANSFERASE 26 U/L (10-37); BILIRUBIN,TOTAL 0.2 MG/DL (0.1-1.0); BLOOD UREA NITROGEN 15 MG/DL (7-18); BUN/CREATININE RATIO 21.1 (10.0-20.0); CALCIUM 8.8 MG/DL (8.5-10.1); CHLORIDE 101 MMOL/L (99-107); CREATININE 0.71 MG/DL (0.40-0.90); GLUCOSE 118 MG/DL (70-104); POTASSIUM 3.9 MMOL/L (3.5-5.1); SODIUM 137 MMOL/L (135-145); TOTAL CARBON DIOXIDE 30.1 MMOL/L (24-32); TOTAL PROTEIN 8.2 G/DL (6.4-8.2); eCRCL 77 ML/MIN; eGFR 85 ML/MIN
[2023-11-08 13:14] LABS: BASOPHILS % (AUTO) 0.5 % (0-1); EOSINOPHILS # (AUTO) 0.2 X10'3 (0-0.9); EOSINOPHILS % (AUTO) 2.7 % (0-6); HEMATOCRIT 43.9 % (35.0-45.0); HEMOGLOBIN 14.8 g/dl (12.0-16.0); LYMPHOCYTES # (AUTO) 1.2 X10'3 (1.1-4.8); LYMPHOCYTES % (AUTO) 20.1 % (21-51); MEAN CORPUSCULAR HEMOGLOBIN 30.7 PG (27.0-31.0); MEAN CORPUSCULAR HGB CONC 33.7 g/dL (33.0-36.5); MEAN PLATELET VOLUME 8.4 FL (7.4-10.4); MONOCYTES # (AUTO) 0.5 X10'3 (0-0.9); MONOCYTES % (AUTO) 8.3 % (2-12); NEUTROPHILS # (AUTO) 4.1 X10'3 (1.8-7.7); NEUTROPHILS % (AUTO) 68.4 % (42-75); PLATELET COUNT 214 X10'3 (140-440); RED BLOOD COUNT 4.83 X10'6 (4.20-5.60); RED CELL DISTRIBUTION WIDTH 14.1 % (11.5-14.5)
[2023-11-08 13:20] LABS: PRO BRAIN NATRIURETIC PEPTIDE 36 PG/ML (0-125)
[2023-11-08 15:03] VITALS: BP 164/103; PULSE 93; RESP 18; TEMP 97.8; O2SAT 95
== END 2023-11-08 18:02 | disposition left against medical advice (07) ==
LOC: ER 12:31
DX: R07.89 Other chest pain (principal); Z53.21 Procedure and treatment not carried out due to patient leaving prior to being seen by health care provider
CPT/HCPCS: 36415; 71045; 80053; 83880; 84484; 85025; 93005; 99281